=== PATIENT | male | born 1950 | race Caucasian/White ===

== ENCOUNTER 2016-10-23 10:48 | Outpatient (CLI) | payer MEDICARE ==
--- NOTE | 2016-10-23 11:43 | DIAGNOSTIC IMAGING REPORT ---
PROCEDURE: XR FEMUR - LEFT INDICATION: HIP PAIN, initial encounter TECHNIQUE: Two views COMPARISON: None. FINDINGS: Normal left hip joint. Chondrocalcinosis of the knee joint. Bones are unremarkable. Atherosclerosis of the femoral vessels. IMPRESSION: 1. Left knee chondrocalcinosis which may be the result of osteoarthritis versus CPPD 2. Normal left hip 3. Atherosclerosis
== END 2016-10-23 23:00 ==
LOC: XR SRH 10:48
DX: M25.552 Pain in left hip (principal)